=== PATIENT | female | born 1985 | race Caucasian/White ===

== ENCOUNTER 2017-08-26 18:03 | Inpatient (IN) | payer OTHER ==
[~2017-08-26] VITALS: Ht 154.9 cm; Wt 63.7 kg
[~2017-08-26 18:03] MED LIST: ANAPROX DS550 M1 PO; BACTRIM,SEPT1 TABLET PO; BENADRYL ALLERG25 MG PO; CARAFATE100 MG/ML PO; DOLOPHINE HCL5 MG PO; DOXYCYCLINE MO100 MG PO; FLEXERIL10 MG PO; HYDROCODON-ACE1 EAC7 PO; Habitrol,Nicoderm CQ TD; IBUPROFEN800 MG PO; KEFLEX500 MG PO; Levaquin PO; MACROBID100 MG PO; METHADONE10 MG PO; MOBIC15 MG PO; MOTRIN600 MG PO; MOTRIN800 MG PO; Methadone Oral Solut PO; NAPROSYN500 MG PO; NAPROXEN SODIU550 MG; NAPROXEN500 MG PO; NOHOMEMEDS; PEPCID40 MG PO; PHENERGAN25 MG PR; PRENATAL TABLE1 EAC3 PO; PROMETHAZINE HC25 M1 PO; Protonix PO; Reglan PO; TRAMADOL HCL50 MG PO; ULTRAM50 MG PO; Ultram PO; VIBRAMYCIN100 MG PO; ZOFRAN4 MG PO; Zantac PO; Zofran PO
[2017-08-26 18:49] LABS: HEMATOCRIT 50.7 % (36.0-46.0); HEMOGLOBIN 17.4 G/DL (11.9-15.5); MCH 29.7 PG (29.0-34.0); MCHC 34.3 G/DL (30.0-36.0); MCV 86.5 FL (83-99); PLATELET COUNT 222 K/uL (156-360); RBC DIS.WIDTH-SD 47.9 % (39-53); RED BLOOD COUNT 5.86 M/uL (3.80-5.20); WHITE BLOOD COUNT 7.6 K/uL (4.1-10.2)
[2017-08-26 18:57] LABS: ALBUMIN 4.1 g/dL (3.2-4.8); CHLORIDE 107 mEq/L (99-109); POTASSIUM 3.9 mEq/L (3.7-5.4); SODIUM 139 mEq/L (136-147)
[2017-08-26 19:00] LABS: GLUCOSE 92 mg/dL (70-99); TOTAL PROTEIN 7.9 g/dL (6.4-8.3)
[2017-08-26 19:02] LABS: TOTAL BILIRUBIN 2.8 mg/dL (0.0-1.0)
[2017-08-26 19:03] LABS: ALKALINE PHOSPHATASE 223 IU/L (3-129); CREATININE 0.7 mg/dL (0.6-1.3); GFR ESTIMATE (CALCULATED) > 59 mL/min/
[2017-08-26 19:04] LABS: UREA NITROGEN (BUN) 10 mg/dL (9-23)
[2017-08-26 19:05] LABS: AST (GOT) 384 IU/L (2-34)
[2017-08-26 19:06] LABS: ALT (GPT) 411 IU/L (3-49)
[2017-08-26 19:54] LABS: APPEARANCE SL.HAZY ((CLEAR)); BILIRUBIN NEGATIVE; BLOOD SMALL; COLOR AMBER ((YELLOW)); GLUCOSE (STRIP) NEGATIVE; KETONES 20; LEUKOCYTES TRACE; NITRITE NEGATIVE; PROTEIN (STRIP) NEGATIVE; SPECIFIC GRAVITY 1.013 (1.000-1.030)
[2017-08-26 20:03] LABS: DIRECT BILIRUBIN 1.5 mg/dL (0.0-0.3)
[2017-08-26 20:25] LABS: AMPHETAMINE NEGATIVE (500 ng/mL); BARBITURATES NEGATIVE (200 ng/mL); BENZODIAZEPINES NEGATIVE (150 ng/mL); BUPRENORPHINE NEGATIVE (10 ng/mL); COCAINE NEGATIVE (150 ng/mL); METHADONE PRESUMPTIVE POSITIVE (200 ng/mL); METHAMPHETAMINE NEGATIVE (500 ng/mL); OPIATES (MORPHINE) PRESUMPTIVE POSITIVE (100 ng/mL); OXYCODONE NEGATIVE (100 ng/mL); PHENCYCLIDINE NEGATIVE (25 ng/mL); PROPOXYPHENE NEGATIVE (300 ng/mL); THC CANNABINOIDS NEGATIVE (50 ng/mL); TRICYCLIC ANTIDEPRESSANTS NEGATIVE (300 ng/mL)
[2017-08-26 20:43] LABS: BACTERIA RARE /HPF; EPITHELIAL CELLS 2+ /HPF; MUCUS 1+ /LPF; UCUL ADDED? NO; WHITE BLOOD CELLS 0-5 /HPF (0-5)
[2017-08-26] MEDS ORDERED: ZOFRAN ODT4 MG PO (20:46)
[2017-08-27 03:09] VITALS: BP 115/71
[2017-08-27 08:16] VITALS: BP 91/54
[2017-08-27 11:17] LABS: HEPATITIS B SURFACE ANTIGEN Nonreactive
[2017-08-27 11:18] LABS: ANTI-HEPATITIS A VIRUS (IGM) Nonreactive
[2017-08-27 11:19] LABS: ANTI-HEPATITIS B CORE (IGM) Nonreactive
[2017-08-27 11:20] LABS: HEPATITIS C ANTIBODY REACTIVE
[2017-08-27 16:57] VITALS: BP 122/62
[2017-08-27 21:10] VITALS: BP 144/63
[2017-08-28 09:13] VITALS: BP 109/54
== END 2017-08-28 12:55 | disposition home or self-care (01) | DRG 897 ==
LOC: EME 18:03 → EDOF 08-27 02:07 → 1WEST 08-27 02:07 → ENRESERV 08-27 02:37 → 1WEST 08-27 03:01
PROVIDERS: Nurse Practitioner Family
DX: F11.20 Opioid dependence, uncomplicated (principal); R74.0 Nonspecific elevation of levels of transaminase and lactic acid dehydrogenase [LDH]; B19.20 Unspecified viral hepatitis C without hepatic coma; F17.200 Nicotine dependence, unspecified, uncomplicated
CPT/HCPCS: 80053; 80074; 81003; 82248; 84999; 85027; 90839; 97150 GO; 97165 GO; 99281; 99285; Q0169; Q0177

== ENCOUNTER 2017-10-09 00:24 | Inpatient (IN) | payer OTHER ==
[~2017-10-09] VITALS: Ht 154.9 cm; Wt 63.2 kg
[~2017-10-09 00:24] MED LIST changes: +ZOFRAN ODT4 MG PO
[2017-10-09 02:08] LABS: HEMATOCRIT 43.2 % (36.0-46.0); HEMOGLOBIN 15.1 G/DL (11.9-15.5); MCH 30.1 PG (29.0-34.0); MCV 86.2 FL (83-99); PLATELET COUNT 244 K/uL (156-360); RBC DIS.WIDTH-CV 14.1 % (11.8-14.6); RED BLOOD COUNT 5.01 M/uL (3.80-5.20); WHITE BLOOD COUNT 11.7 K/uL (4.1-10.2)
[2017-10-09 02:20] LABS: AMPHETAMINE NEGATIVE (500 ng/mL); BARBITURATES NEGATIVE (200 ng/mL); BENZODIAZEPINES NEGATIVE (150 ng/mL); BUPRENORPHINE NEGATIVE (10 ng/mL); COCAINE NEGATIVE (150 ng/mL); METHADONE NEGATIVE (200 ng/mL); METHAMPHETAMINE NEGATIVE (500 ng/mL); OPIATES (MORPHINE) PRESUMPTIVE POSITIVE (100 ng/mL); OXYCODONE NEGATIVE (100 ng/mL); PHENCYCLIDINE NEGATIVE (25 ng/mL); PROPOXYPHENE NEGATIVE (300 ng/mL); THC CANNABINOIDS NEGATIVE (50 ng/mL); TRICYCLIC ANTIDEPRESSANTS NEGATIVE (300 ng/mL)
[2017-10-09 02:24] LABS: ALBUMIN 4.3 g/dL (3.2-4.8)
[2017-10-09 02:25] LABS: CHLORIDE 102 mEq/L (99-109); POTASSIUM 3.6 mEq/L (3.7-5.4); SODIUM 136 mEq/L (136-147)
[2017-10-09 02:27] LABS: GLUCOSE 150 mg/dL (70-99); TOTAL PROTEIN 7.7 g/dL (6.4-8.3)
[2017-10-09 02:29] LABS: TOTAL BILIRUBIN 1.7 mg/dL (0.0-1.0)
[2017-10-09 02:30] LABS: ALKALINE PHOSPHATASE 106 IU/L (3-129); SERUM ETHYL ALCOHOL < 10 mg/dL
[2017-10-09 02:31] LABS: CREATININE 0.8 mg/dL (0.6-1.3); GFR ESTIMATE (CALCULATED) > 59 mL/min/
[2017-10-09 02:32] LABS: AST (GOT) 19 IU/L (2-34); UREA NITROGEN (BUN) 9 mg/dL (9-23)
[2017-10-09 02:34] LABS: ALT (GPT) 11 IU/L (3-49)
[2017-10-09 02:39] LABS: QUANTITATIVE HCG < 4.0 MIU/ML
[2017-10-09 16:31] VITALS: BP 99/56
[2017-10-10 07:49] VITALS: BP 104/59
[2017-10-10 15:26] VITALS: BP 98/53
[2017-10-11 08:01] VITALS: BP 116/66
[2017-10-11 15:31] VITALS: BP 98/57
[2017-10-11 21:06] VITALS: BP 141/74
[2017-10-12 09:31] VITALS: BP 98/50
[2017-10-12 16:14] VITALS: BP 102/60
[2017-10-13 08:11] VITALS: BP 106/59
[2017-10-13 16:26] VITALS: BP 106/58
[2017-10-13 21:06] VITALS: BP 119/59
[2017-10-14 07:50] VITALS: BP 94/50
[2017-10-14 15:43] VITALS: BP 108/63
[2017-10-15 07:35] VITALS: BP 91/53
[2017-10-15] MEDS ORDERED: PROZAC20 MG PO (08:49)
== END 2017-10-15 10:20 | disposition other institution (70) | DRG 897 ==
LOC: EME 00:24 → 1WEST 11:32 → EDOF 11:32 → ENRESERV 12:19 → 1WEST 12:24 → UNDODEPER 12:40 → 1WEST 10-15 10:20
PROVIDERS: Emergency Medicine
DX: F11.23 Opioid dependence with withdrawal (principal); R45.851 Suicidal ideations; F43.23 Adjustment disorder with mixed anxiety and depressed mood; B19.20 Unspecified viral hepatitis C without hepatic coma; J45.909 Unspecified asthma, uncomplicated; F17.200 Nicotine dependence, unspecified, uncomplicated; Z59.0 Homelessness; Z56.0 Unemployment, unspecified
CPT/HCPCS: 80053; 84702; 84999; 85027; 90839; 97150 GO; 97166 GO; 99281; 99285; G0480; J0572; J0574; Q0177

== ENCOUNTER 2017-10-30 00:01 | Emergency (ER) | payer OTHER ==
[~2017-10-30] VITALS: Ht 154.9 cm; Wt 60.3 kg
[~2017-10-30 00:01] MED LIST changes: +PROZAC20 MG PO
[2017-10-30 01:41] LABS: HEMATOCRIT 47.1 % (36.0-46.0); HEMOGLOBIN 16.2 G/DL (11.9-15.5); MCH 30.3 PG (29.0-34.0); MCHC 34.4 G/DL (30.0-36.0); RBC DIS.WIDTH-CV 14.5 % (11.8-14.6); RBC DIS.WIDTH-SD 46.5 % (39-53); RED BLOOD COUNT 5.35 M/uL (3.80-5.20); WHITE BLOOD COUNT 27.1 K/uL (4.1-10.2)
[2017-10-30 01:50] LABS: SERUM ETHYL ALCOHOL 37 mg/dL
[2017-10-30 02:00] LABS: QUANTITATIVE HCG < 4.0 MIU/ML
[2017-10-30 02:25] LABS: ALBUMIN 4.5 g/dL (3.2-4.8); CHLORIDE 106 mEq/L (99-109)
[2017-10-30 02:26] LABS: POTASSIUM 3.6 mEq/L (3.7-5.4); SODIUM 140 mEq/L (136-147)
[2017-10-30 02:28] LABS: GLUCOSE 148 mg/dL (70-99); TOTAL PROTEIN 7.5 g/dL (6.4-8.3)
[2017-10-30 02:30] LABS: TOTAL BILIRUBIN 0.9 mg/dL (0.0-1.0)
[2017-10-30 02:31] LABS: ALKALINE PHOSPHATASE 72 IU/L (3-129); CREATININE 0.9 mg/dL (0.6-1.3); GFR ESTIMATE (CALCULATED) > 59 mL/min/
[2017-10-30 02:33] LABS: AST (GOT) 18 IU/L (2-34); UREA NITROGEN (BUN) 14 mg/dL (9-23)
[2017-10-30 02:34] LABS: ALT (GPT) 14 IU/L (3-49)
[2017-10-30 02:34] LABS: PLAT.SUFFICIENCY ADEQUATE; PLATELET COUNT 182 K/uL (156-360)
[2017-10-30 03:00] VITALS: BP 117/67
[2017-10-30] MEDS ORDERED: NARCAN4 MG NS (03:05)
[2017-10-31] MEDS ORDERED: BENTYL10 MG PO (17:27)
[2017-10-31] MEDS ORDERED: ZOFRAN4 MG PO (17:27)
== END 2017-10-30 03:28 | disposition home or self-care (01) ==
LOC: EME 00:01
PROVIDERS: Emergency Medicine
DX: T40.1X1A Poisoning by heroin, accidental (unintentional), initial encounter (principal); F10.99 Alcohol use, unspecified with unspecified alcohol-induced disorder; R00.0 Tachycardia, unspecified; F17.200 Nicotine dependence, unspecified, uncomplicated
CPT/HCPCS: 80053; 84702; 85027; 93005; G0480; J7030

== ENCOUNTER 2017-10-31 11:00 | Emergency (ER) | payer OTHER ==
[~2017-10-31] VITALS: Ht 154.9 cm; Wt 62.1 kg
[~2017-10-31 11:00] MED LIST changes: +NARCAN4 MG NS
[2017-10-31 11:51] LABS: HEMATOCRIT 46.7 % (36.0-46.0); HEMOGLOBIN 16.3 G/DL (11.9-15.5); MCH 30.7 PG (29.0-34.0); MCHC 34.9 G/DL (30.0-36.0); MCV 87.9 FL (83-99); RBC DIS.WIDTH-CV 14.2 % (11.8-14.6); RBC DIS.WIDTH-SD 45.1 % (39-53); RED BLOOD COUNT 5.31 M/uL (3.80-5.20); WHITE BLOOD COUNT 11.3 K/uL (4.1-10.2)
[2017-10-31 11:52] LABS: PLATELET COUNT 241 K/uL (156-360)
[2017-10-31 12:01] LABS: ALBUMIN 4.8 g/dL (3.2-4.8)
[2017-10-31 12:02] LABS: CHLORIDE 107 mEq/L (99-109); POTASSIUM 3.8 mEq/L (3.7-5.4); SODIUM 143 mEq/L (136-147)
[2017-10-31 12:04] LABS: GLUCOSE 135 mg/dL (70-99); TOTAL PROTEIN 8.2 g/dL (6.4-8.3)
[2017-10-31 12:06] LABS: TOTAL BILIRUBIN 0.8 mg/dL (0.0-1.0)
[2017-10-31 12:07] LABS: ALKALINE PHOSPHATASE 88 IU/L (3-129)
[2017-10-31 12:08] LABS: CREATININE 0.8 mg/dL (0.6-1.3); GFR ESTIMATE (CALCULATED) > 59 mL/min/
[2017-10-31 12:09] LABS: AST (GOT) 25 IU/L (2-34); UREA NITROGEN (BUN) 6 mg/dL (9-23)
[2017-10-31 12:10] LABS: ALT (GPT) 22 IU/L (3-49)
[2017-10-31 12:17] LABS: QUANTITATIVE HCG < 4.0 MIU/ML
[2017-10-31 12:27] LABS: APPEARANCE CLOUDY ((CLEAR)); BILIRUBIN NEGATIVE; BLOOD NEGATIVE; COLOR YELLOW ((YELLOW)); GLUCOSE (STRIP) NEGATIVE; KETONES NEGATIVE; LEUKOCYTES NEGATIVE; NITRITE NEGATIVE; PROTEIN (STRIP) 30; SPECIFIC GRAVITY 1.018 (1.000-1.030)
[2017-10-31 12:43] LABS: AMPHETAMINE NEGATIVE (500 ng/mL); BARBITURATES NEGATIVE (200 ng/mL); BENZODIAZEPINES NEGATIVE (150 ng/mL); BUPRENORPHINE NEGATIVE (10 ng/mL); COCAINE NEGATIVE (150 ng/mL); METHADONE NEGATIVE (200 ng/mL); METHAMPHETAMINE NEGATIVE (500 ng/mL); OPIATES (MORPHINE) NEGATIVE (100 ng/mL); OXYCODONE NEGATIVE (100 ng/mL); PHENCYCLIDINE NEGATIVE (25 ng/mL); PROPOXYPHENE NEGATIVE (300 ng/mL); THC CANNABINOIDS NEGATIVE (50 ng/mL); TRICYCLIC ANTIDEPRESSANTS NEGATIVE (300 ng/mL)
[2017-10-31 12:54] LABS: EPITHELIAL CELLS 1+ /HPF; MUCUS 1+ /LPF; RED BLOOD CELLS 0-5 /HPF (0-5); WHITE BLOOD CELLS 0-5 /HPF (0-5)
[2017-10-31 12:55] LABS: AMORPHOUS PHOSPHATE CRYSTALS 1+
[2017-10-31 12:57] LABS: BACTERIA 1+ /HPF; CALCIUM OXALATE CRYSTALS RARE /HPF; UCUL ADDED? NO
[2017-10-31 16:15] LABS: LIPASE 48 U/L (1.0-51.0)
[2017-10-31] MEDS ORDERED: ZOFRAN4 MG PO (17:27)
[2017-10-31] MEDS ORDERED: BENTYL10 MG PO (17:27)
[2017-10-31 17:47] VITALS: BP 177/116
== END 2017-10-31 17:48 | disposition home or self-care (01) ==
LOC: EME 11:00
PROVIDERS: Emergency Medicine
DX: R10.9 Unspecified abdominal pain (principal); R11.2 Nausea with vomiting, unspecified; R19.7 Diarrhea, unspecified; F11.10 Opioid abuse, uncomplicated; K76.0 Fatty (change of) liver, not elsewhere classified; F17.210 Nicotine dependence, cigarettes, uncomplicated
CPT/HCPCS: 74177; 80053; 81003; 83690; 84702; 85027; 99281; 99285; C9113; J1885; J2405; J2765; J7030